=== PATIENT | female | born 1945 | race American Indian/Alaskan Native ===

== ENCOUNTER 2016-06-01 07:55 | Inpatient (IN) | payer MEDICARE ==
[2016-06-01 08:42] LABS: Basophils % (Auto) 0.9 % (0.0-1.8); Eosinophils % (Auto) 1.4 % (0.0-4.3); Hematocrit 41.9 % (30.3-42.9); Hemoglobin 13.8 gm/dl (10.1-14.3); Mean Corpuscular HGB Conc 33 % (30-34); Mean Corpuscular Hemoglobin 29 pg (28-32); Mean Corpuscular Volume 89 fl (79-97); Platelet Count 247 K/mm3 (140-440); Red Blood Count 4.71 M/mm3 (3.65-5.03); Red Cell Distribution Width 15.9 % (13.2-15.2); White Blood Count 4.9 K/mm3 (4.5-11.0)
[2016-06-01 09:05] LABS: Anion Gap 22 mmol/L; BUN/Creatinine Ratio 8.75; Blood Urea Nitrogen 7 mg/dL (7-17); Calcium 10.1 mg/dL (8.4-10.2); Carbon Dioxide 21 mmol/L (22-30); Chloride 100.1 mmol/L (98-107); Glucose 119 mg/dL (65-100); Sodium 140 mmol/L (137-145)
[2016-06-01 09:08] LABS: Potassium 2.9 mmol/L (3.6-5.0)
[2016-06-01 09:17] LABS: Amylase 57 units/L (27-131); Lipase 53 units/L (13-60)
[2016-06-01] MEDS ORDERED: K-DUR PO ONE (10:04)
[2016-06-01] MEDS ORDERED: NACL 0.9% 500 ML 500 ML IV ONE (10:13)
--- NOTE | 2016-06-01 10:23 | Emergency Department Report ---
HPI - General Chief Complaint: Weakness Time Seen by Provider: 06/01/16 10:02 - HPI HPI: This is a 70-year-old -[place] female who presents to the emergency department with a 2 day history of generalized weakness as well as numbness of the right hand. She denies any facial droop, slurred speech, problems with movement, headache or vision change. Patient also says that since being in the emergency department she has developed some lower abdominal discomfort as well as some nausea without vomiting. The patient also appears slightly emotionally labile as she does not appear to be upset at first but once I walk into the room the patient immediate he starts crying. She says that she called her son and her grandchildren, who live nearby, to get her to the hospital and they ignored her. Patient says she was recently at the hospital and was supposed to follow-up but "I did not want to bother anybody." Patient said through triage that "I think I should go to a assisted as I cannot depend on my relatives to see about me." Patient has a past medical history of hypertension and CHF. Her primary care is a doctor Samantha. ED Past Medical Hx - Past Medical History Previous Medical History?: Yes Hx Hypertension: Yes Hx Congestive Heart Failure: Yes - Surgical History Past Surgical History?: Yes Hx Appendectomy: Yes Additional Surgical History: double knee replacement 2008 - Social History Smoking Status: Never Smoker Substance Use Type: None - Medications Home Medications: Home Medications Medication Instructions Recorded Confirmed Last Taken Type Carvedilol [Coreg] 6.25 mg PO BID 05/22/16 05/22/16 Unknown History Ciprofloxacin HCl [Ciprofloxacin 500 mg PO Q12HR #20 tab 05/22/16 Unknown Rx TAB] Levothyroxine [Synthroid] 75 mcg PO QAM 05/22/16 05/22/16 Unknown History Metoclopramide [Reglan] 10 mg PO QID PRN #30 tablet 05/22/16 Unknown Rx Nitroglycerin (Nf) [Nitrostat] 0.3 mg SL Q5M PRN 05/22/16 05/22/16 Unknown History amLODIPine [Norvasc] 5 mg PO DAILY 05/22/16 05/22/16 Unknown History metroNIDAZOLE [Flagyl] 500 mg PO Q8HR #30 tablet 05/22/16 Unknown Rx oxyCODONE [Roxicodone] 5 mg PO Q6HR PRN #15 tablet 05/22/16 Unknown Rx ED Review of Systems ROS: Stated complaint: WEAKNESS/RT HAND NUMB Other details as noted in HPI Comment: All other systems reviewed and negative Constitutional: weakness. denies: chills, fever Eyes: denies: eye pain, eye discharge, vision change ENT: denies: ear pain, throat pain Respiratory: denies: cough, shortness of breath, wheezing Cardiovascular: denies: chest pain, palpitations Gastrointestinal: abdominal pain, nausea. denies: vomiting Genitourinary: denies: dysuria, discharge Musculoskeletal: denies: back pain, joint swelling, arthralgia Skin: denies: rash, lesions Neurological: numbness. denies: headache, confusion Physical Exam - Physical Exam Vital Signs: Vital Signs 06/01/16 06/01/16 08:02 08:07 Pulse Rate 113 H 124 H Respiratory 13 21 Rate Blood Pressure 141/75 O2 Sat by Pulse 98 96 Oximetry Physical Exam: GENERAL: The patient is well-developed well-nourished. HEENT: Normocephalic. Atraumatic. Extraocular motions are intact. Patient has moist mucous membranes. Pupils equal reactive to light bilaterally. No nystagmus. No facial asymmetry. NECK: Supple. Trachea is midline. CHEST/LUNGS: Clear to auscultation. There is no respiratory distress noted. HEART/CARDIOVASCULAR: Regular. There is no tachycardia. There is no gallop rub or murmur. ABDOMEN: Abdomen is soft, nontender. Patient has normal bowel sounds. There is no abdominal distention. SKIN: There is no rash. There is no edema. There is no diaphoresis. NEURO: The patient is awake, alert, and oriented. The patient is cooperative. Patient complains of decreased sensation to the right upper extremity from the hand to the elbow. No motor or focal deficits. No pronator drift. The patient has normal speech. MUSCULOSKELETAL: There is no tenderness or deformity. There is no limitation range of motion. There is no evidence of acute injury. PSYCH: Patient is emotionally labile and easily starts crying. ED Course Vital Signs 06/01/16 06/01/16 08:02 08:07 Pulse Rate 113 H 124 H Respiratory 13 21 Rate Blood Pressure 141/75 O2 Sat by Pulse 98 96 Oximetry ED Medical Decision Making - Lab Data Result diagrams: 06/01/16 08:33 01/06/17 08:33 - EKG Data -: EKG Interpreted by Me EKG shows normal: sinus rhythm, axis (LAD), intervals, QRS complexes (LVH), ST- T waves (nonspecific ST-T changes) Rate: tachycardia (111 bpm) - EKG Data When compared to previous EKG there are: no significant change Interpretation: unchanged when compared t (05/22/16) - Radiology Data Radiology results: report reviewed, image reviewed interpreted by me: Abdominal x-ray does not show any acute process. CT of the head does not show any acute cranial process going or shift, mass or bleed. - Medical Decision Making 70-year-old female presents the emergency department with complaint of some numbness to the right arm, some abdominal pain, and appears slightly emotionally labile with constant crying, and has had constant tachycardia throughout her ED course. Patient was here about one or 2 weeks ago and had a CT angiography of the chest and CT of the abdomen and pelvis at that time that did not show any acute process. An abdominal x-ray was done today that does not show any signs of obstruction or any signs of significant inflammation or dilation. Patient's labs show hypothyroidism and hypokalemia. Patient was given some potassium chloride. Patient was given some IV fluid resuscitation secondary to her tachycardia with some mild improvement but patient still remains tachycardia with a heart rate around 120. For these reasons the patient will be admitted to hospital for further evaluation. Despite her recent CT angiography of the chest being negative, the hospitalist, who was accepted admission, has requested a VQ scan to be done. This is been ordered and the patient will be admitted for further evaluation. Despite the patient's complaint of right arm numbness, she does not appear to be having a CVA. On top of that the symptoms have been going on for the past 2- 3 days and this alone would make the patient not be a TPA candidate. - Differential Diagnosis anxiety, diverticulitis, bowel obstruction, CVA, PE Critical Care Time: No Critical care attestation.: If time is entered above; I have spent that time in minutes in the direct care of this critically ill patient, excluding procedure time. ED Disposition Clinical Impression: Tachycardia, Anxiety, Hypokalemia Abdominal pain Qualifiers: Abdominal location: generalized Qualified Code(s): R10.84 - Generalized abdominal pain Hypothyroid Qualifiers: Hypothyroidism type: unspecified Qualified Code(s): E03.9 - Hypothyroidism, unspecified Disposition: OP ADMITTED IP TO THIS HOSP Is pt being admited?: Yes Condition: Stable Time of Disposition: 13:05
[2016-06-01] MEDS ORDERED: ZOFRAN IV ONE (10:53)
[2016-06-01 11:00] LABS: Alanine Aminotransferase 8 units/L (7-56); Albumin/Globulin Ratio 1.2 %; Alkaline Phosphatase 74 units/L (35-129); Bilirubin,Total 0.3 mg/dL (0.1-1.2); Total Protein 7.4 g/dL (6.3-8.2)
[2016-06-01 11:05] LABS: Bilirubin,Direct < 0.2 mg/dL (0-0.2)
[2016-06-01] MEDS ORDERED: MORPHINE IV ONE (11:56)
--- NOTE | 2016-06-01 12:03 | XRay Report ---
ABDOMEN RADIOGRAPHS: INDICATION: Abdominal pain. COMPARISON: 05/22/2016 CT findings. FINDINGS: Frontal abdominal radiographs, 3 images, demonstrate nonobstructive bowel gas pattern. No focal suspicious calcifications, pneumatosis or pneumoperitoneum. [id number] elevation of the right hemidiaphragm again noted. Otherwise, clear lung bases. Mild aortic knob calcifications. EKG leads. Moderate multilevel spinal and bilateral hip degenerative changes. Few gluteal calcified injection granulomas. CONCLUSION: No acute abdominal radiographic abnormality in this patient with recently suspected colitis/diverticulitis/neoplasm and few other incidental findings, as above. Thank you for the opportunity to participate in this patient's care.
--- NOTE | 2016-06-01 12:38 | Cat Scan Report ---
CT HEAD WITHOUT CONTRAST INDICATION: Right-sided numbness. COMPARISON: None similar. FINDINGS: Noncontrast head CT demonstrates symmetric, age appropriate ventricle and sulci. Mild to moderate periventricular and few white matter hypodensities represent small vessel end artery ischemic disease. Similar changes also suspected in the lake/brainstem. No definite acute infarct, hemorrhage, mass effect or shift. No abnormal extra-axial fluid collections. Posterior fossa structures and basilar cisterns appear within normal limits. Unremarkable eye globes. Mild right frontoethmoid sinus mucosal thickening. Grossly clear remainder imaged paranasal sinuses and mastoid air cells. Few missing teeth. Slight atherosclerotic internal carotid artery calcifications. Intact calvarium and scalp. CONCLUSION: 1. No acute intracranial CT abnormality with age-appropriate atrophy and microvascular changes. 2. Few other incidental findings, as above. Thank you for the opportunity to participate in this patient's care.
--- NOTE | 2016-06-01 13:35 | Admit Criteria Form ---
Admission Criteria Documentation: CARDIOLOGY GRG Clinical Indications for Admission to Inpatient Care ( Place 'X' for any and all applicable criteria): Hospital admission is needed for appropriate care of the patient because of ANY ONE of the following (1): [X ] I. Hemodynamic instability as indicated by ALL of the following (1)(2)(3 )(4)(5) [X ]a) Vital signs or other findings not as expected for chronic patient condition or baseline [X ]b) Instability indicated by ANY ONE of the following: [ ]i) Hypotension [ X]ii) Symptomatic Tachycardia unresponsive to treatment ( e.g., analgesia, fluids, sedation as indicated) [ ]iii) Inadequate perfusion indicated by ANY ONE of the following: [ ] 1) Lactic acidosis (> 2 mmol/L) [ ] 2) New abnormal capillary refill (> 3 seconds) [ ] 3) Reduced urine output [ ] 4) New altered mental status [ ]iv) Orthostatic vital sign changes unresponsive to treatment (e.g., fluids) [ ]v) IV inotropic or vasopressor medication required to maintain adequate blood pressure or perfusion [ ] II. Severe heart failure as indicated by ANY ONE of the following(17)(18) [ ]a) Respiratory distress [ ]b) Hypotension [ ]c) Anasarca (refractory to outpatient therapy) [ ]d) Cardiac arrhythmias of immediate concern [ ]e) Myocardial ischemia [ ] III. Cardiac arrhythmias or findings of immediate concern indicated by ANY ONE of the following (19)(20): [ ] a) Heart rhythms that are inherently dangerous or unstable indicated by ANY ONE of the following (21)(22)(23): [ ] i) Resuscitated ventricular fibrillation or cardiac arrest [ ] ii) Ventricular escape rhythm [ ] iii) Sustained ventricular tachycardia (30 seconds or more of ventricular rhythm at greater than 100 beats per minute) [ ] iv) Nonsustained ventricular tachycardia and ANY ONE of the following: [ ] 1) Suspected cardiac ischemia as cause or consequence of ventricular tachycardia [ ] 2) In setting of acute myocarditis [ ] b) Unstable cardiac conduction defects indicated by ANY ONE of the following(23)(24)(25) [ ] i) Type II second-degree atrioventricular block [ ]ii) Third-degree atrioventricular block [ ]iii) New-onset left bundle branch block with suspected myocardial ischemia [ ]c) Any heart rhythm and ANY ONE of the following (21)(22)(26)(27) (28) [ ] i) Continuous long-term ECG monitoring needed (e.g., initiation of drug requiring monitoring for more than 24 hours) [ ] ii) Patient has automatic implanted cardioverter defibrillator that is repeatedly firing, malfunctioning, or in need of immediate adjustment of settings beyond the scope of ambulatory or observation care [ ]d) Heart rhythms of concern due to ANY ONE of the following: [ ] i) Hypotension [ ] ii) Respiratory distress [ ] iii) Association with other significant symptoms (e.g., bradycardia with syncope or ongoing dizziness, supraventricular tachycardia with chest pain (14)(15)(17) [ ] IV. Monitoring for cardiac contusion beyond the scope of observation care needed [A](30)(31)(32) [ ] V. Surgical or device complication (e.g., valve replacement complication , pacemaker dysfunction) (35)(41)(44)(45)(46) [ ] . Inpatient palliative care needed. [B](49) Also use Inpatient Palliative Care Criteria [ ] VII. Nonbacterial thrombotic (marantic) endocarditis (36)(43)(47)(48) [ ] VIII. Cardiology condition, symptom, or finding for which emergency and observation care has failed or are not considered appropriate. [ ] IX. Acute valvular disease requiring inpatient as indicated by ANY ONE of the following (41) [ ]a) Acute valvular regurgitation (42) [ ]b) Noninfectious valvulitis (43) [ ]c) Obstructive valve thrombosis [ ]d) Paravalvular leak [ ]e) Other significant valvular disorder remaining after emergency or observation level of care (as appropriate) [ ]X. Pericardial disease requiring inpatient treatment as indicated by ANY ONE of the following (33)(34)(35)(36)(37) [ ]a) Suspected tamponade (38)(39)(40) [ ]b) Hemopericardium [ ]c) Other significant pericardial disorder remaining after emergency or observation level of care (as appropriate) [ ] XI. Cardiac ischemia beyond scope of emergency and observation care. [ ] XII. Hypertension requiring inpatient treatment as indicated by ANY ONE of the following (6)(7)(8) [ ]a) SBP greater than 220 mm Hg or DBP greater than 120 mmHg despite treatment [ ]b) SBP greater than 140 mm Hg or DBP greater than 100 mm Hg with evidence of acute end organ damage as indicated by ANY ONE of the following [ ] i) Altered mental status [ ] ii) Acute renal failure as indicated by new onset of ANY ONE of the following (9)(10)(11)(12)(13) [ ]1) 3-fold rise in serum creatinine from baseline [ ]2) Serum creatinine greater than 4 mg/dL ( 354 micromoles/L) with acute rise greater than 0.5 mg/dL (44.2 micromoles/L) [ ]3) Reduction of more than 75% in estimated glomerular filtration rate from baseline [ ]4) Estimated glomerular filtration rate less than 35 mL/min/1.73m2 (0.59 mL/sec/1.73m2) in child up to 18 years of age [ ]5) Cessation of urine output indicated by ALL of the following [ ]A. Adequate volume status [ ]B. Inadequate urine output as indicated by ANY ONE of the following [ ]a. Urine output less than 0.3 mL/kg/hr for 24 hours [ ]b. Anuria (urine output less than 0.1 mL/kg/hr) for 12 hours [ ] iii) Aortic dissection [ ] iv) Myocardial Ischemia [ ] v) Left ventricular heart failure [ ]vi) Retinal Hemorrhage [ ]vii) Other significant finding [ ]c) Hypertension in child requiring inpatient treatment as indicated by ALL of the following(14)(15)(16) [ ] i) Outpatient treatment not effective, not available, or not appropriate [ ]ii) SBP or DBP greater than 95th percentile for age [ ]iii) Evidence of acute end organ damage as indicated by ANY ONE of the following [ ]1) Altered mental status [ ]2) Acute renal failure as indicated by new onset of ANY ONE of the following(9)(10)(11)(12)(13) [ ]A. 3-fold rise in serum creatinine from baseline [ ]B. Serum creatinine greater than 4 mg/dL (354 micromoles/L) with acute rise greater than 0.5 mg/dL (44.2 micromoles/L) [ ]C. Reduction of more than 75% in estimated glomerular filtration rate from baseline [ ]D. Estimated glomerular filtration rate less than 35 mL/min/1.73m2 (0.59 mL/sec/1.73m2) in child up to 18 years of age [ ]E. Cessation of urine output indicated by ALL of the following [ ]a. Adequate volume status [ ]b. Inadequate urine output as indicated by ANY ONE of the following [ ]i) Urine output less than 0.3 mL/kg/hr for 24 hours [ ]ii) Anuria ( urine output less than 0.1 mL/kg/hr) for 12 hours [ ]3) Severe headache [ ]4) Visual disturbance [ ]5) Retinal hemorrhage [ ]6) Other significant finding [ ]XIII. Complications of transplanted heart indicated by ANY ONE of the following(61): [ ]a) Acute graft rejection requiring inpatient management (eg, intravenous immunosuppression)(62)(63) [ ]b) Acute graft heart failure indicated by ANY ONE of the following(64): [ ]i) Hemodynamic instability [ ]ii) Cardiac arrhythmias of immediate concern [ ]iii) Pulmonary edema that is very severe (eg, mechanical ventilation needed, imminent or likely, need for 100% oxygen to keep oxygen saturation above 90%) [ ]iv) Pulmonary edema that is persistent as indicated by ALL of the following: [ ]1) New need for oxygen therapy to keep oxygen saturation above 90% (or increased FiO2 need from baseline) [ ]2) Has not improved sufficiently with emergency department or observation care IV diuretics or other heart failure treatments[E] [ ]v) Altered mental status that is severe or persistent [ ]vi) Increased creatinine (new on laboratory test) with reduction of more than 50% in estimated glomerular filtration rate from baseline [ ]vii) Progressively (ongoing) rising creatinine (known from past laboratory test) with reduction of more than 25% in estimated glomerular filtration rate from baseline [ ]viii) Acute renal failure [ ]ix) Acute peripheral ischemia (eg, examination shows pulseless, cool, mottled, or cyanotic extremity) [ ]x) Pulmonary artery catheter monitoring needed [ ]xi) Other sign or symptom of heart failure requiring inpatient treatment (ie, too severe or not responsive to outpatient and observation care treatment) [ ]c) Infection requiring inpatient management (eg, Hemodynamic instability, need for intravenous antimicrobial treatment)(66)(67)(68)(69)(70) [ ]d) Cardiac allograft vasculopathy requiring inpatient management ( eg evidence of cardiac ischemia)(71) [ ]e) Other complication of transplanted heart (eg, stroke, severe pulmonary hypertension, severe valvular dysfunction) requiring inpatient management(72) The original [facility] content created by [facility] has been revised. The portions of the content which have been revised are identified through the use of italic text or in bold, and [facility] has neither reviewed nor approved the modified material. All other unmodified content is copyright [facility]. Please see references footnoted in the original [facility] edition 2016 Admission Criteria Met: Yes
--- NOTE | 2016-06-01 13:55 | Nuclear Medicine Report ---
Ventilation/perfusion lung scan: Upright posterior ventilation imaging demonstrates a mild focal area of heterogeneity of uptake at the left lung base. No retention of activity identified on washout images. On the perfusion imaging with multiple projections there does also be a slight degree of heterogeneity in in the lower left lung posteriorly consistent with the ventilation scan. No segmental or subsegmental areas of deficiency are identified in either lung. Impression: Matched ventilation/perfusion findings on the left. No suspicion of pulmonary embolus.
[2016-06-01] MEDS ORDERED: REGLAN PO PRN (16:27)
[2016-06-01] MEDS ORDERED: MILK OF MAGNESIA PO PRN (16:40)
[2016-06-01] MEDS ORDERED: DULCOLAX PR PRN (16:40)
[2016-06-01] MEDS ORDERED: TYLENOL PO PRN (16:40)
[2016-06-01] MEDS ORDERED: NORVASC PO SCH (17:00)
[2016-06-01] MEDS: FLAGYL PO SCH ×2 (18:32→23:23)
[2016-06-01] MEDS: LOVENOX SUB-Q SCH (18:33)
[2016-06-01] MEDS: ROXICODONE PO PRN (20:50)
--- NOTE | 2016-06-01 22:58 | Event Note ---
Date: 06/01/16 See H/p in reports Dehydration Tachycardia Hypokalemia Hypothyroidism
[2016-06-01] MEDS ORDERED: COREG PO SCH (23:10)
[2016-06-01] MEDS: PERCOCET 5/325 PO PRN (23:22)
[2016-06-01] MEDS: COREG PO SCH ×3 (23:24→23:30)
--- NOTE | 2016-06-02 00:09 | History and Physical Report ---
CHIEF COMPLAINT: Generalized weakness and numbness in the right hand. HISTORY OF PRESENT ILLNESS: A 70-year-old -Spanish female who comes in for generalized weakness and numbness in the right hand. She was in the Emergency Department a couple of days ago and had a complete workup including an abdominal CAT scan and CT of the chest, and was apparently normal and was sent home. The patient is very anxious and emotionally labile. Apparently, the children are not taking care of her. She feels that she should go to a penitentiary. PAST MEDICAL HISTORY: Significant for hypothyroidism, hypertension, congestive heart failure. PAST SURGICAL HISTORY: Appendectomy and double knee replacement. SOCIAL HISTORY: Does not smoke. FAMILY HISTORY: Significant for hypertension. CURRENT MEDICATIONS: Coreg 6.25 b.i.d., levothyroxine 75 mcg p.o. daily, amlodipine 5 mg p.o. daily, metronidazole 500 mg p.o. q. 8, oxycodone 5 mg p.o. q. 6. REVIEW OF SYSTEMS: Significant for feeling very weak, right hand numbness, and feeling very anxious and depressed. Otherwise, review of systems is essentially negative. A 14-point review of systems was done. PHYSICAL EXAMINATION: GENERAL: Elderly female, cooperative during examination. VITAL SIGNS: Her initial pulse rate was in the 140s, has come down to 120 and 124 by the time of my examination. Blood pressure was 141/75, respiratory rate is 18, sats are 99%. HEENT: Unremarkable. Pupils equal and reactive. NECK: Supple, no lymphadenopathy, no thyromegaly. LUNGS: Clear to auscultation and percussion. Good air entry. CARDIOVASCULAR: S1, S2 heard. No gallop, no murmur, no rub. Apical impulse in left fifth intercostal space and midclavicular line. ABDOMEN: Soft and benign. No hepatosplenomegaly. No guarding. No rigidity. Hernial orifices are normal. EXTREMITIES: Good pedal pulses. No pedal edema. CENTRAL NERVOUS SYSTEM: Alert and oriented x 4, nonfocal exam. LABORATORY DATA: Significant for potassium of 2.9, BUN and creatinine of 7 and 0.8. H and H is 13.8 and 41.9. EKG shows left axis deviation, heart rate of 111 per minute. RADIOLOGY: X-ray shows, abdominal x-rays are normal, CT of the head normal, and V/Q scan was normal. EMERGENCY DEPARTMENT COURSE: The old records were reviewed and IV fluids were given in the ED, but the patient had persistent tachycardia and also severe anxiety, hence the admission. ASSESSMENT AND PLAN: 1. Hypokalemia, being supplemented. 2. Dehydration. IV fluids for the time being. 3. Severe anxiety, Xanax 0.25 q. 8 initiated. 4. Hypothyroidism. TSH high. We will increase the dosage of levothyroxine to 125 mcg from 75 mcg. 5. Hypertension. We will increase the Coreg to 12.5 and stop the amlodipine. 6. Chronic pain. The patient is on oxycodone 5 mg q. 6, continue the same. DISCHARGE PLANNING ISSUES: The patient wants penitentiary. We will ask for case management to look into penitentiary placement and also discuss with the patient again whether she really needs a [facility]ci facility. JOB# [id number] MELITA/CHADD GODOY
[2016-06-02] MEDS: D5/0.45NS 1,000 ML IV SCH (00:25)
[2016-06-02] MEDS: KCL 10MEQ/100ML 100 ML IV SCH ×4 (00:27→04:37)
[2016-06-02] MEDS: FLAGYL PO SCH ×3 (05:35→21:56)
[2016-06-02] MEDS: SYNTHROID PO SCH (05:36)
[2016-06-02] MEDS: LOVENOX SUB-Q SCH (08:59)
[2016-06-02] MEDS: ZOFRAN IV PRN (08:59)
[2016-06-02] MEDS: ROXICODONE PO PRN ×2 (08:59→21:54)
[2016-06-02] MEDS: COREG PO SCH ×2 (09:00→21:56)
[2016-06-02] MEDS ORDERED: SYNTHROID PO SCH ×2 (10:00)
[2016-06-02 11:22] LABS: Anion Gap 17 mmol/L; BUN/Creatinine Ratio 8.88; Blood Urea Nitrogen 8 mg/dL (7-17); Calcium 9.7 mg/dL (8.4-10.2); Carbon Dioxide 25 mmol/L (22-30); Chloride 104.9 mmol/L (98-107); Glucose 96 mg/dL (65-100); Potassium 4.8 mmol/L (3.6-5.0); Sodium 142 mmol/L (137-145)
[2016-06-02] MEDS ORDERED: PNEUMOVAX 23 IM ONE (12:00)
[2016-06-02] MEDS ORDERED: FLUARIX QUAD 2016-2017(36 MOS+) IM ONE (12:00)
[2016-06-02 12:04] LABS: Magnesium 1.9 mg/dL (1.7-2.3); Phosphorous 1.7 mg/dL (2.5-4.5)
[2016-06-02] MEDS ORDERED: SODIUM PHOSPHATE 30 MMOL in NACL 0.9% 500 ML 500 ML IV ONE (12:20)
[2016-06-02] MEDS: PERCOCET 5/325 PO PRN ×2 (14:17→21:55)
--- NOTE | 2016-06-02 16:48 | Progress Note ---
Assessment and Plan Assessment and plan: Generalized weakness. Multifactorial due to hypokalemia, hypothyroidism. Hypokalemia. Replace iv and po Debility. Patient states she cannot take care of self at home. Case management consulted for [facility] facility placement Recent acute diverticulitis. She was seen here in the emergency department on 05/02/[address] abdomen showed focal diverticulitis for which she was put on ciprofloxacin and Flagyl as an outpatient. Will resume Flagyl and ciprofloxacin. Hypothyhyroidism. TSH 32 which is high. Dose of levothyroxine increased to 125 g by mouth daily Hypertension Chronic CHF. Details unclear DVT prophylaxis with Lovenox. Full CODE STATUS History Interval history: Generalized weakness, No abdominal pain No fever is Inability to take care of self at home Hospitalist Physical - Physical exam Narrative exam: Gen: Not in acute distress HEENT: Normocephalic, atraumatic Neck :supple, no JVD Lungs: Lungs clear to auscultation bilaterally, no crackles no wheezes. Heart S1 and S2 regular, no murmurs no gallop Abdomen:soft, mild lower abd tender, nondistended, normal bowel sounds Ext: No edema, no clubbing or cyanosis Neuro: Awake alert oriented x 3 - Constitutional Vitals: Temp Pulse Resp BP Pulse Ox 97.8 F 82 16 127/67 98 06/02/16 15:17 06/02/16 10:00 06/02/16 15:17 06/02/16 15:17 06/02/16 15:17 Results - Labs CBC & Chem 7: 06/01/16 08:33 06/02/16 10:45 Labs: Laboratory Last Values WBC 4.9 K/mm3 (4.5-11.0) 06/01/16 08:33 RBC 4.71 M/mm3 (3.65-5.03) 06/01/16 08:33 Hgb 13.8 gm/dl (10.1-14.3) 06/01/16 08:33 Hct 41.9 % (30.3-42.9) 06/01/16 08:33 MCV 89 fl (79-97) 06/01/16 08:33 MCH 29 pg (28-32) 06/01/16 08:33 MCHC 33 % (30-34) 06/01/16 08:33 RDW 15.9 % (13.2-15.2) H 06/01/16 08:33 Plt Count 247 K/mm3 (140-440) 06/01/16 08:33 Lymph % (Auto) 35.8 % (13.4-35.0) H 06/01/16 08:33 [place] % (Auto) 13.2 % (0.0-7.3) H 06/01/16 08:33 Eos % (Auto) 1.4 % (0.0-4.3) 06/01/16 08:33 Baso % (Auto) 0.9 % (0.0-1.8) 06/01/16 08:33 Lymph # 1.7 K/mm3 (1.2-5.4) 06/01/16 08:33 [place] # 0.6 K/mm3 (0.0-0.8) 06/01/16 08:33 Eos # 0.1 K/mm3 (0.0-0.4) 06/01/16 08:33 Baso # 0.0 K/mm3 (0.0-0.1) 06/01/16 08:33 Seg Neutrophils % 48.7 % (40.0-70.0) 06/01/16 08:33 Seg Neutrophils # 2.4 K/mm3 (1.8-7.7) 06/01/16 08:33 Sodium 142 mmol/L (137-145) 06/02/16 10:45 Potassium 4.8 mmol/L (3.6-5.0) D 06/02/16 10:45 Chloride 104.9 mmol/L (98-107) 06/02/16 10:45 Carbon Dioxide 25 mmol/L (22-30) 06/02/16 10:45 Anion Gap 17 mmol/L 06/02/16 10:45 BUN 8 mg/dL (7-17) 06/02/16 10:45 Creatinine 0.9 mg/dL (0.7-1.2) 06/02/16 10:45 Estimated GFR > 60 ml/min 06/02/16 10:45 BUN/Creatinine Ratio 8.88 % 06/02/16 10:45 Glucose 96 mg/dL (65-100) 06/02/16 10:45 Calcium 9.7 mg/dL (8.4-10.2) 06/02/16 10:45 Phosphorus 1.7 mg/dL (2.5-4.5) L 06/02/16 10:45 Magnesium 1.9 mg/dL (1.7-2.3) 06/02/16 10:45 Total Bilirubin 0.3 mg/dL (0.1-1.2) 06/01/16 08:33 Direct Bilirubin < 0.2 mg/dL (0-0.2) 06/01/16 08:33 AST 17 units/L (5-40) 06/01/16 08:33 ALT 8 units/L (7-56) 06/01/16 08:33 Alkaline Phosphatase 74 units/L (35-129) 06/01/16 08:33 Troponin T < 0.010 ng/mL (0.00-0.029) 06/01/16 08:33 Total Protein 7.4 g/dL (6.3-8.2) 06/01/16 08:33 Albumin 4.0 g/dL (3.9-5) 06/01/16 08:33 Albumin/Globulin Ratio 1.2 % 06/01/16 08:33 Amylase 57 units/L (27-131) 06/01/16 08:33 Lipase 53 units/L (13-60) 06/01/16 08:33 TSH 32.400 mlU/mL (0.270-4.200) H 06/01/16 10:28 Free T4 0.68 ng/dL (0.76-1.46) L 06/02/16 10:45
[2016-06-02 18:15] LABS: Bacteria,Urine 1+ /HPF (Negative); Bilirubin,Urine NEG (Negative); Blood,Urine SM (Negative); Ketones,Urine NEG (Negative); Leukocyte Esterase,Urine MOD (Negative); Mucus,Urine FEW /HPF; Nitrite,Urine NEG (Negative); Protein,Urine <15 mg/dL mg/dL (Negative); Urobilinogen,Urine < 2.0 mg/dL (<2.0)
[2016-06-02] MEDS: XANAX PO PRN (18:34)
[2016-06-02] MEDS: ZOLOFT PO SCH (21:56)
[2016-06-03] MEDS: SYNTHROID PO SCH (06:12)
[2016-06-03] MEDS: FLAGYL PO SCH ×3 (06:12→21:00)
[2016-06-03] MEDS: XANAX PO PRN ×2 (06:12→15:05)
[2016-06-03] MEDS: COREG PO SCH ×2 (09:31→21:00)
[2016-06-03] MEDS: LOVENOX SUB-Q SCH (09:31)
[2016-06-03] MEDS: PERCOCET 5/325 PO PRN ×2 (09:32→15:06)
[2016-06-03] MEDS: ZOFRAN IV PRN (09:32)
--- NOTE | 2016-06-03 13:11 | Progress Note ---
Assessment and Plan Assessment and plan: Generalized weakness. Multifactorial due to hypokalemia, hypothyroidism. Hypokalemia. Resolved after replacement Debility. Patient states she cannot take care of self at home. Case management consulted for longterm facility placement Recent acute diverticulitis. She was seen here in the emergency department on 05/22/[address] abdomen showed focal diverticulitis for which she was put on ciprofloxacin and Flagyl as an outpatient. Continue Flagyl and ciprofloxacin. Hypothyroidism. TSH 32 which is high. Dose of levothyroxine increased to 125 mcg by mouth daily Hypertension. UTI. Cipro Chronic CHF. Details unclear DVT prophylaxis with Lovenox. Full CODE STATUS History Interval history: Generalized weakness, Low abdominal pain No fever Inability to take care of self at home Hospitalist Physical - Physical exam Narrative exam: Gen: Not in acute distress HEENT: Normocephalic, atraumatic Neck :supple, no JVD Lungs: Lungs clear to auscultation bilaterally, no crackles no wheezes. Heart S1 and S2 regular, no murmurs no gallop Abdomen:soft, mild lower abd tenderness, nondistended, normal bowel sounds Ext: No edema, no clubbing or cyanosis Neuro: Awake alert oriented x 3, no focal signs Skin: scar from [place] on face, trunk - Constitutional Vitals: Temp Pulse Resp BP Pulse Ox 97.4 F L 85 20 112/78 97 06/03/16 11:40 06/03/16 11:40 06/03/16 11:40 06/03/16 11:40 06/03/16 11:40 Results - Labs CBC & Chem 7: 06/01/16 08:33 06/02/16 10:45 Labs: Laboratory Last Values WBC 4.9 K/mm3 (4.5-11.0) 06/01/16 08:33 RBC 4.71 M/mm3 (3.65-5.03) 06/01/16 08:33 Hgb 13.8 gm/dl (10.1-14.3) 06/01/16 08:33 Hct 41.9 % (30.3-42.9) 06/01/16 08:33 MCV 89 fl (79-97) 06/01/16 08:33 MCH 29 pg (28-32) 06/01/16 08:33 MCHC 33 % (30-34) 06/01/16 08:33 RDW 15.9 % (13.2-15.2) H 06/01/16 08:33 Plt Count 247 K/mm3 (140-440) 06/01/16 08:33 Lymph % (Auto) 35.8 % (13.4-35.0) H 06/01/16 08:33 [place] % (Auto) 13.2 % (0.0-7.3) H 06/01/16 08:33 Eos % (Auto) 1.4 % (0.0-4.3) 06/01/16 08:33 Baso % (Auto) 0.9 % (0.0-1.8) 06/01/16 08:33 Lymph # 1.7 K/mm3 (1.2-5.4) 06/01/16 08:33 [place] # 0.6 K/mm3 (0.0-0.8) 06/01/16 08:33 Eos # 0.1 K/mm3 (0.0-0.4) 06/01/16 08:33 Baso # 0.0 K/mm3 (0.0-0.1) 06/01/16 08:33 Seg Neutrophils % 48.7 % (40.0-70.0) 06/01/16 08:33 Seg Neutrophils # 2.4 K/mm3 (1.8-7.7) 06/01/16 08:33 Sodium 142 mmol/L (137-145) 06/02/16 10:45 Potassium 4.8 mmol/L (3.6-5.0) D 06/02/16 10:45 Chloride 104.9 mmol/L (98-107) 06/02/16 10:45 Carbon Dioxide 25 mmol/L (22-30) 06/02/16 10:45 Anion Gap 17 mmol/L 06/02/16 10:45 BUN 8 mg/dL (7-17) 06/02/16 10:45 Creatinine 0.9 mg/dL (0.7-1.2) 06/02/16 10:45 Estimated GFR > 60 ml/min 06/02/16 10:45 BUN/Creatinine Ratio 8.88 % 06/02/16 10:45 Glucose 96 mg/dL (65-100) 06/02/16 10:45 Calcium 9.7 mg/dL (8.4-10.2) 06/02/16 10:45 Phosphorus 1.7 mg/dL (2.5-4.5) L 06/02/16 10:45 Magnesium 1.9 mg/dL (1.7-2.3) 06/02/16 10:45 Total Bilirubin 0.3 mg/dL (0.1-1.2) 06/01/16 08:33 Direct Bilirubin < 0.2 mg/dL (0-0.2) 06/01/16 08:33 AST 17 units/L (5-40) 06/01/16 08:33 ALT 8 units/L (7-56) 06/01/16 08:33 Alkaline Phosphatase 74 units/L (35-129) 06/01/16 08:33 Troponin T < 0.010 ng/mL (0.00-0.029) 06/01/16 08:33 Total Protein 7.4 g/dL (6.3-8.2) 06/01/16 08:33 Albumin 4.0 g/dL (3.9-5) 06/01/16 08:33 Albumin/Globulin Ratio 1.2 % 06/01/16 08:33 Amylase 57 units/L (27-131) 06/01/16 08:33 Lipase 53 units/L (13-60) 06/01/16 08:33 TSH 32.400 mlU/mL (0.270-4.200) H 06/01/16 10:28 Free T4 0.68 ng/dL (0.76-1.46) L 06/02/16 10:45 Urine Color Yellow (Yellow) 06/02/16 17:10 Urine Turbidity Slightly-cloudy (Clear) 06/02/16 17:10 Urine pH 6.0 (5.0-7.0) 06/02/16 17:10 Ur Specific [place] 1.016 (1.003-1.030) 06/02/16 17:10 Urine Protein <15 mg/dl mg/dL (Negative) 06/02/16 17:10 Urine Glucose (UA) Neg mg/dL (Negative) 06/02/16 17:10 Urine Ketones Neg mg/dL (Negative) 06/02/16 17:10 Urine Blood Sm (Negative) 06/02/16 17:10 Urine Nitrite Neg (Negative) 06/02/16 17:10 Urine Bilirubin Neg (Negative) 06/02/16 17:10 Urine Urobilinogen < 2.0 mg/dL (<2.0) 06/02/16 17:10 Ur Leukocyte Esterase Mod (Negative) 06/02/16 17:10 Urine WBC (Auto) 7.0 /HPF (0.0-6.0) H 06/02/16 17:10 Urine RBC (Auto) 5.0 /HPF (0.0-6.0) 06/02/16 17:10 U Epithel Cells (Auto) 5.0 /HPF (0-13.0) 06/02/16 17:10 Urine Bacteria (Auto) 1+ /HPF (Negative) 06/02/16 17:10 Urine Mucus Few /HPF 06/02/16 17:10
[2016-06-03] MEDS ORDERED: NITROGLYCERIN 0.3 MG SL PRN (15:48)
[2016-06-03] MEDS ORDERED: NITROSTAT SL PRN (16:01)
[2016-06-03] MEDS ORDERED: NON-FORMULARY (Ciprofloxacin Hcl [Ciprofloxacin Tab] 500 MG) PO SCH (18:00)
[2016-06-03] MEDS: LEVAQUIN PO SCH (18:14)
[2016-06-03] MEDS: ROXICODONE PO PRN (20:59)
[2016-06-03] MEDS: ZOLOFT PO SCH (21:00)
[2016-06-04] MEDS: PERCOCET 5/325 PO PRN ×3 (01:08→15:31)
[2016-06-04] MEDS: XANAX PO PRN (01:08)
[2016-06-04] MEDS: SYNTHROID PO SCH (05:44)
[2016-06-04] MEDS: FLAGYL PO SCH ×2 (05:45→14:01)
[2016-06-04] MEDS: D5/0.45NS 1,000 ML IV SCH (05:46)
[2016-06-04] MEDS: LEVAQUIN PO SCH (09:49)
[2016-06-04] MEDS: COREG PO SCH (09:49)
[2016-06-04] MEDS: LOVENOX SUB-Q SCH (09:49)
--- NOTE | 2016-06-04 11:20 | Discharge Summary ---
Providers - Providers Date of Admission: 06/01/16 16:40 Date of discharge: 06/04/16 Attending physician: DANG BHAGAT Primary care physician: NIDIA MCDERMOTT MD Hospitalization Condition: Stable Disposition: DISCHARGED TO HOME OR SELFCARE - Discharge Diagnoses (1) Hypokalemia Status: Acute (2) Hypothyroid Status: Acute Qualifiers: Hypothyroidism type: unspecified Qualified Code(s): E03.9 - Hypothyroidism , unspecified (3) UTI (urinary tract infection) Status: Acute (4) General weakness Status: Acute (5) Debility Status: Acute (6) Diverticulitis Status: Acute Core Measure Documentation - Palliative Care Palliative Care/ Comfort Measures: Not Applicable - Core Measures Any of the following diagnoses?: none Exam - Constitutional Vitals: Temp Pulse Resp BP Pulse Ox 98.2 F 88 20 132/79 99 06/04/16 08:35 06/04/16 08:35 06/04/16 08:35 06/04/16 08:35 06/04/16 08:35 Plan Activity: no restrictions Diet: low fat, low cholesterol, low salt Additional Instructions: 1. Follow-up with primary care physician in 3-5 days. 2. Follow up with GI physician in 1 week Follow up with: PRIMARY CAREMD [Primary Care Provider] - 3-5 Days Prescriptions: Levothyroxine [Synthroid] 125 mcg PO DAILY@0600 #30 tablet
[2016-06-04 13:54] VITALS: BP 112/65
== END 2016-06-04 18:00 | disposition home or self-care (01) | DRG 690 ==
LOC: ED 07:55 → 4A 16:40
PROVIDERS: ADMIT Internal Medicine; ATTEND Internal Medicine
PROC: 3E0234Z Introduction of Serum, Toxoid and Vaccine into Muscle, Percutaneous Approach (ICD-10-PCS; principal; 2016-06-02)
DX: N39.0 Urinary tract infection, site not specified (principal); K57.92 Diverticulitis of intestine, part unspecified, without perforation or abscess without bleeding; E87.6 Hypokalemia; R29.810 Facial weakness; R47.81 Slurred speech; I50.9 Heart failure, unspecified; Z96.659 Presence of unspecified artificial knee joint; R00.0 Tachycardia, unspecified; F41.9 Anxiety disorder, unspecified; E03.9 Hypothyroidism, unspecified; E86.0 Dehydration; I11.0 Hypertensive heart disease with heart failure; G89.29 Other chronic pain; R53.81 Other malaise; Z23 Encounter for immunization; Z90.49 Acquired absence of other specified parts of digestive tract; Z79.899 Other long term (current) drug therapy; Z82.49 Family history of ischemic heart disease and other diseases of the circulatory system
CPT/HCPCS: 36415; 70450; 74020; 78582; 80048; 80074; 81001; 82150; 83690; 83735; 84100; 84439; 84443; 84484; 85025; 87086; 90686; 90732; 93005; 93010; 96361; 96374; 96375; A9540; A9558; J1650; J2270; J2405; J3480; J7040